=== PATIENT | female | born 1955 | race Caucasian/White ===

== ENCOUNTER 2016-07-30 11:09 | Inpatient (IN) ==
--- NOTE | 2016-07-27 21:08 | Discharge Summary ---
<Merissa Mcdaniel - Last Filed: 07/30/16 08:48> - Discharge Diagnosis (1) Arthritis of knee, left Priority: Primary Status: Acute (2) JAC (obstructive sleep apnea) Priority: Secondary Status: Chronic (3) HTN (hypertension) Priority: Secondary Status: Chronic Qualifiers: Hypertension type: essential hypertension Qualified Code(s): I10 - Essential (primary) hypertension (4) Hyperlipidemia Priority: Secondary Status: Chronic Qualifiers: Hyperlipidemia type: unspecified Qualified Code(s): E78.5 - Hyperlipidemia , unspecified (5) Obesity (BMI 35.0-39.9 without comorbidity) Priority: Secondary Status: Chronic - Discharge Medications Home Medications: Carvedilol 12.5 mg PO BID 01/10/16 [History] Meloxicam 15 mg PO DAILY 01/10/16 [History] Pantoprazole Sodium [Protonix] 40 mg PO DAILY 01/10/16 [History] Soy Isofla/Blk Cohosh/Mag Bark [Estroven 155 mg Capsule] 155 mg PO DAILY [History] Vitamin E Acid Succinate [Vitamin E] 400 units PO DAILY 01/10/16 [History] OxyCODONE Immed Rel [Roxicodone 5 MG] 5 - 10 mg PO Q6HR PRN #30 tablet 07/29/16 [Rx] Aspirin Enteric Coated [Aspirin EC] 81 mg PO DAILY 07/30/16 [History] Aspirin Enteric Coated [Aspirin EC] 325 mg PO DAILY #21 tablet. 07/30/16 [Rx] Cyanocobalamin (Vitamin B-12) [Vitamin B-12] 1,000 mcg SL DAILY 07/30/16 [ History] Allergies/Adverse Reactions: Allergies Enoxaparin [From Lovenox] Allergy (Verified 07/30/16 13:55) Unresponsive Iodinated Contrast Media - Oral and [Iodinated Contrast Media - IV Dye] Allergy (Verified 07/30/16 13:55) Blister lanolin Allergy (Verified 07/30/16 13:55) Rash latex Allergy (Verified 07/30/16 13:55) Rash iodine Adverse Reaction (Verified 07/30/16 13:55) Blister Primary care physician: PCP NO - Patient Status Disposition: Home, Self-Care Condition: Good - Discharge Instructions Follow Up With: NO,PCP [Primary Care Provider] - - Hospital Course Hospital course: Ms. Rowell is a 60 year old female - Time Spent with Patient Total time spent providing and/or coordinating discharge services: <Cristóbal Franklin - Last Filed: 07/31/16 06:35> Date of Encounter: 07/31/16 Time of Encounter: 06:33 - Discharge Diagnosis (1) HTN (hypertension) Priority: Secondary Status: Chronic Qualifiers: Hypertension type: unspecified secondary hypertension Qualified Code(s): I15.9 - Secondary hypertension, unspecified; I15 - Secondary hypertension (2) GERD (gastroesophageal reflux disease) Priority: Secondary Status: Chronic Qualifiers: Esophagitis presence: without esophagitis Qualified Code(s): K21.9 - Gastro -esophageal reflux disease without esophagitis (3) Hyperlipidemia Priority: Secondary Status: Chronic Qualifiers: Hyperlipidemia type: unspecified Qualified Code(s): E78.5 - Hyperlipidemia , unspecified (4) Obesity (BMI 35.0-39.9 without comorbidity) Priority: Secondary Status: Chronic (5) Arrhythmia Priority: Secondary Status: Acute Qualifiers: Arrhythmia type: unspecified cardiac arrhythmia Qualified Code(s): I49.9 - Cardiac arrhythmia, unspecified (6) Obstructive sleep apnea Priority: Secondary Status: Chronic (7) Berylliosis Priority: Secondary Status: Chronic (8) Arthritis of knee, left Priority: Primary Status: Acute (9) Acute blood loss anemia Priority: Primary Status: Acute Primary care physician: PCP NO - Patient Status Functional capacity at discharge: uses cane/walker Overall status at discharge: patient is progressing back to baseline - Hospital Course Hospital course: Ms. Rowell is a 61 year old female uneventful postop course antibiotics and PT DC ASA dvt prophylaxis. HB 10.2 - Time Spent with Patient Total time spent providing and/or coordinating discharge services:
[2016-07-30] MEDS ORDERED: CeFAZolin Pre 2,000 MG/100 ML 2,000 MG/100 ML BAG IVPB ONE (12:20)
--- NOTE | 2016-07-30 12:54 | History & Physical Report ---
Date of Encounter: 07/30/16 Time of Encounter: 12:54 24 Hour HP Update - Instructions Instructions: If the History and Physical is less than 30 days old and was completed prior to A.M. admission and or procedure and has NOT been updated on calendar day of procedure please complete this update prior to performing procedure. - Update Patient reports changes in Medical Condition: No Changes in assessment/condition: No Changes in Medication: No Preop tests/diagnostics Reviewed: Yes Surgery Remains Indicated: Yes Consent for Planned Operative Procedure(s) Verified: Yes - Pre-Operative Checklist Preoperative Checklist Indicated: No Prophylactic Antibiotic Ordered: Yes Is VTE Prophylaxis Indicated?: Yes
[2016-07-30] MEDS: Ringers Solution, Lactated 500 ML IVC SCH ×3 (13:40→15:18)
--- NOTE | 2016-07-30 13:41 | Anesthesia Evaluation PreOp ---
Date of Encounter: 07/30/16 Time of Encounter: 13:40 - Past History Planned Operation: Left TKA Cardiac History: HTN, Hyperlipidemia, Arrhythmia Pulmonary History: Denies Any Significant HX TRUCK TECHNICIAN History: Denies Any Significant HX Other Medical History: GERD, Other (Obese) Anesthesia History: No Prior Anesthetic Complications : No Alcohol Use: none, rarely Drug use: none Medications and Allergies Carvedilol 12.5 mg PO BID 01/10/16 [History] Meloxicam 15 mg PO DAILY 01/10/16 [History] Pantoprazole Sodium [Protonix] 40 mg PO DAILY 01/10/16 [History] Soy Isofla/Blk Cohosh/Mag Bark [Estroven 155 mg Capsule] 155 mg PO DAILY [History] Vitamin E Acid Succinate [Vitamin E] 400 units PO DAILY 01/10/16 [History] OxyCODONE Immed Rel [Roxicodone 5 MG] 5 - 10 mg PO Q6HR PRN #30 tablet 07/29/16 [Rx] Aspirin Enteric Coated [Aspirin EC] 325 mg PO DAILY #21 tablet. 07/30/16 [Rx] Allergies Enoxaparin [From Lovenox] Allergy (Verified 04/21/16 19:39) Unresponsive Iodinated Contrast Media - Oral and [Iodinated Contrast Media - IV Dye] Allergy (Verified 01/10/16 08:19) Cramping of the Muscles lanolin Allergy (Verified 04/21/16 15:23) Rash latex Allergy (Verified 01/10/16 08:19) Rash iodine Adverse Reaction (Verified 01/10/16 09:38) Blister - Meds/Allergy Pre-op Review Medications Reviewed: Yes Allergies Reviewed: Yes Beta Blockers on Current Med List: Yes (Coreg at 1340 today) Anesthesia Results - Labs Laboratory Tests 07/23/16 07/23/16 09:38 09:38 Hgb 11.4 L Hct 34.8 L Plt Count 268 Sodium 137 Potassium 4.3 BUN 9 Creatinine 0.86 - Imaging EKG: report reviewed (SR) Anesthesia Exam O2 Sat Height 1.65 m Height 1.65 m Weight 99.337 kg Weight 99.337 kg O2 Sat by Pulse Oximetry 97 O2 Sat by Pulse Oximetry 97 Vital Signs Temp Pulse Resp BP Pulse Ox 98.6 F 84 16 134/84 97 07/30/16 12:19 07/30/16 12:19 07/30/16 12:19 07/30/16 12:19 07/30/16 12:19 Height: 5'5 Weight: 219 lbs NPO (# of Hours): MN Pain Scale: 1 - HEENT Pupil (Motor): Pupils equal, EOMI Mallampati: II Teeth: Normal Oral Opening: Greater than 3 - TRUCK TECHNICIAN LOC: Oriented TRUCK TECHNICIAN Motor: Normal RUE, Normal LUE, Normal RLE, Normal LLE, Normal Face TRUCK TECHNICIAN Sensory: Normal: RUE, LUE, RLE, LLE, Face - Cardiac Rhythm: Regular Murmur: None JVD: No Carotid Bruit: No - Pulmonary Breath Sounds: bilateral Clear Respiratory Effort: Symmetrical Anesthesia Assess/Plan ASA Score: 2 Modified Bayview Scale for Level of Consciousness: Cooperative, oriented, and tranquil Anesthetic Plan: General, Regional Monitoring Plan: Standard Monitors Recovery Plan: PACU (Discussed GA and RA, agrees to proceed)
[2016-07-30] MEDS ORDERED: *HR* Midazolam HCl 2 MG/2 ML VIAL ONE ×3 (13:46→14:10)
[2016-07-30] MEDS ORDERED: Dexamethasone 4 MG/ML VIAL ONE ×2 (13:47→14:10)
[2016-07-30] MEDS ORDERED: *HR* Propofol 200 MG/20 ML VIAL IVP ONE ×2 (13:47→14:10)
[2016-07-30] MEDS ORDERED: Lidocaine -MPF 2% 2 ML VIAL ONE ×2 (13:47→14:10)
[2016-07-30] MEDS ORDERED: *HR* FentaNYL (PF) 100 MCG/2 ML VIAL ONE ×2 (13:47→14:10)
[2016-07-30] MEDS ORDERED: Ondansetron 4 MG/2 ML VIAL ONE ×2 (13:47→14:10)
[2016-07-30] MEDS ORDERED: Tetracaine/PF 20 MG/2 ML AMPUL SPINA ONE (13:48)
[2016-07-30] MEDS ORDERED: Bupivacaine/Clonidine Syringe 1 EACH SYRINGE ONE (13:48)
[2016-07-30] MEDS ORDERED: ROPIVACAINE HCL/PF 0.5% 30 ML VIAL ONE (13:48)
[2016-07-30] MEDS ORDERED: *HR* Rocuronium Bromide 50 MG/5 ML VIAL ONE (14:05)
[2016-07-30] MEDS ORDERED: Lidocaine -MPF 4% 5 ML AMPUL ONE (14:05)
[2016-07-30] MEDS ORDERED: *HR* Succinylcholine 200 MG/10 ML VIAL IVP ONE (14:05)
[2016-07-30] MEDS ORDERED: Ketorolac 30 MG/ML VIAL ONE ×2 (14:11→15:31)
--- NOTE | 2016-07-30 15:18 | Orthopedic Operative Note ---
Date of procedure: 07/30/16 Pre-op diagnosis: Knee arthritis left Post-op diagnosis: same Procedure: Procedure: Left Total knee replacement Estimated blood loss: 200 cc Hardware: Arthrex Femur: 6 Tibia: 5 PS insert: 12 Patella: 37 Exam Under anesthesia: Full flexion and full extension Procedural Notes: Grade 4 arthritic changes medial compartment patellofemoral joint grade 3 arthritic changes lateral compartment Operative procedure: The patient was brought to the operating room and placed on the operating room table. After general anesthesia was administered the operative knee was examined. Findings were noted in the exam under anesthesia. The operative extremity was prepped and draped in sterile surgical fashion. The patient received IV antibiotics prior to skin incision. A standard midline incision was made centered over the patella. The incision was made through the skin and subcutaneous tissue. A medial parapatellar tendon approach was performed. Care was taken to preserve tissue along the medial aspect of the patella. And to protect the patella tendon. The deep MCL was released off the medial tibia. The infra patella fat pad was excised. Knee was brought into flexion. Patient noted to have grade 4 arthritic changes medial compartment and patellofemoral joint grade 3 arthritic changes lateral compartment. The entry hole was made for the intramedullary femoral guide. The guide was seated in 6 degrees of valgus. Anterior cut was made followed by the distal cut. The ACL the PCL the medial and the lateral menisci were excised. The tibia was subluxed forward. The entry hole was made for the intramedullary tibial guide. Guide was seated to resect 2 mm off the more abnormal side. The knee was brought into flexion the distal femur was sized to a 6. The femoral guide was seated, the anterior cut was made followed by the posterior condylar cut, followed by the chamfer cuts. The finishing guide was seated the box cut was made and the lug holes were drilled. The tibia was sized to a 5, the tibial tray was seated and prepared with the large drill followed by the fin cutter. Trial reduction revealed full extension no varus valgus instability with the appropriate 12 PS Bernice. The patella was everted and cut was made at the level of the insertion of the quadriceps and patella tendon. The patella was sized 37 the guide was seated and the lug holes are drilled. Trial reduction revealed excellent patella tracking. All trial components were removed all bony surfaces were irrigated. The tibia was cemented first followed by the femur. The 12 PS Bernice was seated and the knee was brought into full extension. The patella was cemented and held in place with the patellar holding clamp. After the cement had hardened, the knee sat for 2 minutes with a Betadine saline solution. The knee was then irrigated out with 2 L of pulse irrigation. The extensor mechanism was closed with #2 FiberWire suture and #2 PDS suture. The subcutaneous tissue was then irrigated and closed deep with #1 PDS suture superficially with 0 PDS suture and skin was closed with skin diamond. The patient was then placed in a sterile dressing and a postoperative brace extubated and transferred to recovery room in stable condition. Anesthesia: GETBrian Surgeon: Cristóbal Franklin Condition: stable Disposition: PACU
[2016-07-30 16:12] LABS: Hematocrit 29.9 % (35.3-44.9); Hemoglobin 10.2 g/dL (11.5-15.4)
[2016-07-30] MEDS: *HR* HYDROmorphone (PF) 1 MG/ML SYRINGE IVP PRN ×4 (16:14→18:01)
--- NOTE | 2016-07-30 16:53 | Anesthesia Evaluation Post Op ---
Date of Encounter: 07/30/16 Time of Encounter: 16:52 - Vital Signs Vital Signs: VSS - Lungs Lungs: Clear Ascult./Percussion - Airway Airway: Non-obstructed - Cardiovascular Regular Rate, Baseline Rhythm - Mental Status Mental Status: Alert & Oriented, Answers Appropriately - Pain Pain Scale: 0 Pain Scale used: Numeric (1 - 10) - Nausea Vomiting Nausea Vomiting: Not Present - Hydration Hydration: Ice chips - Discharge PostOp Status: Transfer Patient to floor
[2016-07-30] MEDS ORDERED: Ondansetron 4 MG/2 ML VIAL IVP PRN (17:26)
[2016-07-30] MEDS ORDERED: MOM Conc 10 ML UD.LIQ PO PRN (17:26)
[2016-07-30] MEDS ORDERED: Acetaminophen 325 MG TABLET PO PRN (17:26)
[2016-07-30] MEDS ORDERED: Sennosides 8.6 MG TABLET PO PRN (17:26)
[2016-07-30] MEDS ORDERED: Temazepam 15 MG CAPSULE PO PRN (17:26)
[2016-07-30] MEDS ORDERED: Ringers Solution, Lactated 1,000 ML IVC SCH (17:26)
[2016-07-30] MEDS ORDERED: *HR* Enoxaparin 30 MG/0.3 ML SYRINGE SQ SCH (18:00)
[2016-07-30] MEDS: *HR* OxyCODONE Immed Rel 5 MG TABLET PO PRN (20:58)
[2016-07-30] MEDS: ceFAZolin 2,000 MG in D5% in Water 100 ML IVPB SCH (23:12)
[2016-07-31] MEDS: *HR* OxyCODONE Immed Rel 5 MG TABLET PO PRN ×4 (03:33→21:54)
[2016-07-31] MEDS: *HR* Rivaroxaban 10 MG TABLET PO SCH (06:32)
--- NOTE | 2016-07-31 06:36 | Orthopedics Progress Note ---
Date of Encounter: 07/31/16 Time of Encounter: 06:35 - Assessment and Plan (1) HTN (hypertension) Current Visit: No Status: Chronic Qualifiers: Hypertension type: unspecified secondary hypertension Qualified Code(s): I15.9 - Secondary hypertension, unspecified; I15 - Secondary hypertension (2) GERD (gastroesophageal reflux disease) Current Visit: No Status: Chronic Qualifiers: Esophagitis presence: without esophagitis Qualified Code(s): K21.9 - Gastro -esophageal reflux disease without esophagitis (3) Hyperlipidemia Current Visit: No Status: Chronic Qualifiers: Hyperlipidemia type: unspecified Qualified Code(s): E78.5 - Hyperlipidemia , unspecified (4) Obesity (BMI 35.0-39.9 without comorbidity) Current Visit: No Status: Chronic (5) Arrhythmia Current Visit: No Status: Acute Qualifiers: Arrhythmia type: unspecified cardiac arrhythmia Qualified Code(s): I49.9 - Cardiac arrhythmia, unspecified (6) Obstructive sleep apnea Current Visit: No Status: Chronic (7) Berylliosis Current Visit: No Status: Chronic (8) Arthritis of knee, left Current Visit: Yes Status: Acute (9) Acute blood loss anemia Current Visit: No Status: Acute Subjective Interval history: pt doing well no complaints afvss operative extremity NVI dressing c/d/i calves nt continue postop care Hb 10.2 plan dc today Objective Vital signs: Vital Signs Temp Pulse Resp BP Pulse Ox 07/31/16 06:21 98.4 F 78 18 119/72 94 L 07/31/16 03:35 98.9 F 108 18 123/76 94 L 07/30/16 23:44 98.1 F 105 15 108/70 94 L 07/30/16 20:20 97.3 F L 52 17 99/66 97 07/30/16 19:14 97.8 F 88 15 111/72 98 07/30/16 18:16 97.6 F 65 15 118/67 100 07/30/16 17:45 97.6 F 61 15 111/63 100 07/30/16 17:15 97.6 F 63 16 115/63 100 07/30/16 16:57 77 16 123/82 100 07/30/16 16:47 97.0 F L 74 16 117/73 100 07/30/16 16:37 74 16 112/70 98 07/30/16 16:27 62 14 111/65 93 L 07/30/16 16:17 96.8 F L 60 16 113/69 98 07/30/16 16:07 64 16 110/65 100 07/30/16 15:57 60 14 108/63 100 07/30/16 15:47 97.0 F L 64 12 132/70 96 07/30/16 14:20 90 121/79 99 07/30/16 13:54 89 130/86 98 07/30/16 12:30 98.6 F 84 16 134/84 97 07/30/16 12:19 98.6 F 84 16 134/84 97 Intake and Output 07/30/16 07/30/16 07/31/16 15:59 23:59 07:59 Intake Total 1100 / 1100 100 / 100 Output Total 200 / 200 Balance 900 / 900 100 / 100 Intake: IV Fluids 1100 / 1100 100 / 100 Lactated Ringers 500 ML @ 1000 / 1000 75 mls/hr IVC .Q6H40M AYAD Rx#:[id number] Ancef 2,000 MG In 100 / 100 Dextrose 5% 100 ML @ 200 mls/hr IVPB Q8H AYAD Rx#: [id number] Ancef Premix 2,000 MG/100 100 / 100 ML 2,000 mg In 100 ml @ 200 mls/hr IVPB PREOP ONE Rx#:[id number] Output: Estimated Blood Loss 200 / 200 Other: # Voids 1 Weight 99.337 kg - Labs CBC & BMP: 07/30/16 16:04 Labs: Abnormal lab results Hgb 10.2 g/dL (11.5-15.4) L 07/30/16 16:04 Hct 29.9 % (35.3-44.9) L 07/30/16 16:04 - VTE Documentation of Mechanical Device: Venous foot pump, device Consult Discharge Plan - Plan Referrals: NO,PCP [Primary Care Provider] -
[2016-07-31 06:48] LABS: Hematocrit 28.5 % (35.3-44.9); Hemoglobin 9.7 g/dL (11.5-15.4)
[2016-07-31 06:59] LABS: BUN/Creatinine Ratio 15 (6-26); Blood Urea Nitrogen 12 mg/dL (7-20); Calcium 8.4 mg/dL (8.6-10.8); Carbon Dioxide 22 mEq/L (19-29); Chloride 103 mEq/L (98-109); Glucose 118 mg/dL (70-99); Osmolality,Calculated 285 (280-300); Potassium 4.6 mEq/L (3.5-4.5); Sodium 137 mEq/L (136-145); eGFR For African Americans > 60 (> 60); eGFR For Non-African Americans > 60 (> 60)
[2016-07-31] MEDS: ceFAZolin 2,000 MG in D5% in Water 100 ML IVPB SCH (07:44)
[2016-07-31] MEDS: *HR* HYDROmorphone (PF) 1 MG/ML SYRINGE IVP PRN ×3 (11:15→18:54)
[2016-07-31] MEDS ORDERED: *HR* Rivaroxaban 10 MG TABLET PO SCH (13:47)
[2016-07-31] MEDS: Gabapentin 300 MG CAPSULE PO SCH ×2 (13:49→21:07)
--- NOTE | 2016-07-31 17:55 | Venous Imaging Report ---
LE Venous Duplex Patient Name:Brenda Rowell Order Number:[id number] Procedure Date:07/31/2016 Date:1955ge:61 yrs Gender:Female Location:[facility] Room #: [id number] Marine Equipment Preservation Inspector:Erica Ramirez Referring MD:Cristóbal Franklin MD prison librarian:None Reading MD:Abilio Brown MD Primary Indications:calf pain Secondary Indications: Risk Factors Yes/No Anticoagulants Yes Knee surgery s/p 1 day Yes Impressions: Normal left lower extremity deep and superficial venous exam. Normal contralateral common femoral vein. Recommendations: After imaging the patient returned to their room. Findings Venous Duplex Results: Right: Venous imaging of the lower extremity reveals full patency and normal vessel compressibility of the right common femoral. Doppler signals in the evaluated veins were normal. Left: Venous imaging of the lower extremity reveals full patency and normal vessel compressibility of the left distal iliac, left common femoral, left superficial femoral, left popliteal, left posterior tibial, left peroneal, left great saphenous and left lesser saphenous. Doppler signals in the evaluated veins were normal. Lower Extremity Venous Duplex Side Vein Compress Spontaneous Flow Augment Diameter (cm) Depth (cm) Left Distal Iliac Normal Yes Phasic Yes Left Common Femoral Normal Yes Phasic Yes Left Superficial Femoral Normal Yes Phasic Yes Left Popliteal Normal Yes Phasic Yes Left Posterior Tibial Normal Yes Phasic Yes Left Peroneal Normal Yes Phasic Yes Left Great Saphenous Normal Yes Phasic Yes Left Lesser Saphenous Normal Yes Phasic Yes Right Common Femoral Normal Yes Phasic Yes Updated by Abilio Brown MD on 07/31/2016 5:48:36 PM electronically signed on 07/31/2016 5:49:28 PM with status of Final
[2016-08-01] MEDS: Naloxone 0.4 MG/ML INJ IVP PRN ×3 (06:23→07:29)
--- NOTE | 2016-08-01 06:44 | Orthopedics Progress Note ---
Date of Encounter: 08/01/16 Time of Encounter: 06:41 - Assessment and Plan (1) HTN (hypertension) Current Visit: No Status: Chronic Qualifiers: Hypertension type: unspecified secondary hypertension Qualified Code(s): I15.9 - Secondary hypertension, unspecified; I15 - Secondary hypertension (2) GERD (gastroesophageal reflux disease) Current Visit: No Status: Chronic Qualifiers: Esophagitis presence: without esophagitis Qualified Code(s): K21.9 - Gastro -esophageal reflux disease without esophagitis (3) Hyperlipidemia Current Visit: No Status: Chronic Qualifiers: Hyperlipidemia type: unspecified Qualified Code(s): E78.5 - Hyperlipidemia , unspecified (4) Obesity (BMI 35.0-39.9 without comorbidity) Current Visit: No Status: Chronic (5) Arrhythmia Current Visit: No Status: Acute Qualifiers: Arrhythmia type: unspecified cardiac arrhythmia Qualified Code(s): I49.9 - Cardiac arrhythmia, unspecified (6) Obstructive sleep apnea Current Visit: No Status: Chronic (7) Berylliosis Current Visit: No Status: Chronic (8) Arthritis of knee, left Current Visit: Yes Status: Acute (9) Acute blood loss anemia Current Visit: No Status: Acute Subjective Interval history: Patient seen this AM, difficult to arrouse, received 10 mg of roxicodone last night. Patient did not respond to 2 doses of Narcan. Patient seen by the hospitalist. Recommendation for ABG and possible brain scan Temperature 103. Vital signs stable. Laboratory reviewed slight anemia good kidney function from yesterday. Continue to monitor Objective Vital signs: Vital Signs Temp Pulse Resp BP Pulse Ox 08/01/16 00:00 98.3 F 68 17 126/78 95 07/31/16 20:00 100.4 F H 114 17 138/74 95 07/31/16 14:40 98.2 F 97 18 116/74 93 L 07/31/16 11:10 98.4 F 93 20 127/81 100 Intake and Output 07/31/16 07/31/16 08/01/16 15:59 23:59 07:59 Intake Total 360 / 360 350 / 350 200 / 200 Output Total 400 / 400 300 / 300 Balance 360 / 360 -50 / -50 -100 / -100 Intake: Oral 360 / 360 350 / 350 200 / 200 Output: Urine 400 / 400 300 / 300 Other: Meal Lunch Percent of Meal Consumed 95% # Voids 4 - Labs CBC & BMP: 07/31/16 05:50 07/31/16 05:50 Labs: Abnormal lab results Hgb 9.7 g/dL (11.5-15.4) L 07/31/16 05:50 Hct 28.5 % (35.3-44.9) L 07/31/16 05:50 Potassium 4.6 mEq/L (3.5-4.5) H 07/31/16 05:50 Glucose 118 mg/dL (70-99) H 07/31/16 05:50 Calcium 8.4 mg/dL (8.6-10.8) L 07/31/16 05:50 - VTE Documentation of Mechanical Device: Venous foot pump, device Consult Discharge Plan - Plan Referrals: Cristóbal Franklin MD [Partnered Physician] - 08/28/16 9:35 am Merissa Mcdaniel, PAC [Physician Regulatory Compliance Engineer] - 08/09/16 9:45 am YOLIE,PCP [Primary Care Provider] -
[2016-08-01 06:53] LABS: Hematocrit 25.5 % (35.3-44.9); Hemoglobin 8.3 g/dL (11.5-15.4)
[2016-08-01 06:58] LABS: ABG Base Excess 4.8 mEq/L (-2.0 to 3.0); ABG HCO3 29.2 mEQ/L (21-27); ABG Oxygen Saturation 100 % (95-98); ABG PCO2 42 mmHg (35-45); ABG PH 7.45 pH Units (7.32-7.45); ABG PO2 242 mmHg (85-104); ABG TCO2 30.5 mEq/L (20-26)
[2016-08-01 06:59] LABS: Blood Gas FiO2 100 %
[2016-08-01] MEDS: *HR* Rivaroxaban 10 MG TABLET PO SCH (07:09)
[2016-08-01 07:14] LABS: Potassium 4.8 mEq/L (3.5-4.5)
[2016-08-01] MEDS ORDERED: Acetaminophen IV 1,000 MG/100 ML INFUS..BTL IVPB STA (07:15)
[2016-08-01 07:28] LABS: Calcium 8.5 mg/dL (8.6-10.8)
--- NOTE | 2016-08-01 07:35 | Internal Medicine Consult Note ---
Date of Encounter: 08/01/16 Time of Encounter: 07:29 - Assessment and Plan (1) Sepsis Current Visit: Yes Status: Acute Assessment and plan: Unclear etiology at this time. CXR with increased interstitial makings at bilateral hilar regions. UA/micro negative for evidence of infection. No nuchal rigidity, patient denying headache or neck pain which makes [employer] infection unlikely. Timing makes surgical site infection unlikely (less than 48 hours since TKA). Influenza swab negative but this does not rule out influenza. Given temp of 103 plus evidence of end organ dysfunction (ray and transaminase elevation), will treat for sepsis with antibiotics and fluid resuscitation. - Will treat with vanc/zosyn to cover for hospital acquired infections, could have early pneumonia s/p intubation for surgery - Blood cultures obtained and pending - IV fluid resuscitation Qualifiers: Sepsis type: sepsis due to unspecified organism Qualified Code(s): A41.9 - Sepsis, unspecified organism (2) Transaminitis Current Visit: Yes Status: Acute Assessment and plan: Likely secondary to sepsis. S/p cholecystectomy and patient denies abdominal pain. Abdominal exam benign. Lipase pending. - Trend transaminases, if increase tomorrow consider RUQ US (3) RAY (acute kidney injury) Current Visit: Yes Status: Acute Assessment and plan: In setting of sepsis. FENa = 0, supporting prerenal etiology as driving the RAY - IV fluid resuscitation (4) Somnolence Current Visit: Yes Status: Acute Assessment and plan: Multifactorial. Overmedication in the setting of sepsis. Recently started on gabapentin (now with RAY, gabapentin is renally cleared). Also on narcotics with improvement of alertness after narcan administration. Patient more alert on recheck several hours after initial evaluation, and mental status continued to improve throughout the day. CT head negative for any acute issues. - Discontinue gabapentin - Limit narcotics - Treat for sepsis Internal Medicine - CN: HPI - Data of Consult Patient: new to practice Requesting Physician: Cristóbal rFanklin MD - Consult Narrative Reason for consult: Somnolence, fever History of present illness: Ms. Rowell is a 61 year old female with history of GERD, HTN, JAC who underwent left TKA on 07/30/[address] Franklin, found to be very somnolent this morning with elevated temperature of 103.2. Patient had received roxycodone for increasing pain of the left knee and she did respond to 3 doses of narcan, and is now able to wake up and give one word answers to occasional questions with significant verbal stimulation. She denies any pain currently. She had an ABG which showed normal pH and CO2, elevated O2 (on nonrebreather at time of ABG) and normal HCO3-. Nursing staff states that she had low grade temperature in the night of 100.4 but this resolved with incentive spirometer use. Nursing states that she has not had any vomiting or diarrhea, no cough, and has not been complaining of abdominal pain or headache. She was started on gabapentin yesterday. Because of increasing pain in her left leg she did have duplex ultrasound which was negative for DVT. I have spoken with patient's who states that she only complained about her left knee and calf hurting her yesterday, and she had no other complaints. He denies any recent ill contacts at home. Past Med Surg Social Fam HX - Past Medical History Medical history: arthritis, GERD, hypertension, other (JAC) Psychiatric history: no psych history - Past Surgical History Surgical History: appendectomy, , cholecystectomy, hysterectomy, knee replacement, orthopedic, other, J CARLOS/BSO, other - Social History Smoking Status: Never smoker Smokeless Tobacco Status: No Alcohol use: rarely Drug use: none - Family History Mother Living Status: Hx Family Cardiac Disorders: Yes (HTN) Hx Family Musculoskeletal Disorders: Yes (bone cancer) ROS unobtainable: due to mental status Internal Medicine - CN: Meds Carvedilol 12.5 mg PO BID 01/10/16 [History] Meloxicam 15 mg PO DAILY 01/10/16 [History] Pantoprazole Sodium [Protonix] 40 mg PO DAILY 01/10/16 [History] Soy Isofla/Blk Cohosh/Mag Bark [Estroven 155 mg Capsule] 155 mg PO DAILY [History] Vitamin E Acid Succinate [Vitamin E] 400 units PO DAILY 01/10/16 [History] OxyCODONE Immed Rel [Roxicodone 5 MG] 5 - 10 mg PO Q6HR PRN #30 tablet 07/29/16 [Rx] Aspirin Enteric Coated [Aspirin EC] 81 mg PO DAILY 07/30/16 [History] Aspirin Enteric Coated [Aspirin EC] 325 mg PO DAILY #21 tablet 07/30/16 [Rx] Cyanocobalamin (Vitamin B-12) [Vitamin B-12] 1,000 mcg SL DAILY 07/30/16 [ History] Allergies Enoxaparin [From Lovenox] Allergy (Verified 07/30/16 13:55) Unresponsive Iodinated Contrast Media - Oral and [Iodinated Contrast Media - IV Dye] Allergy (Verified 07/30/16 13:55) Blister lanolin Allergy (Verified 07/30/16 13:55) Rash latex Allergy (Verified 07/30/16 13:55) Rash iodine Adverse Reaction (Verified 07/30/16 13:55) Blister Internal Medicine - CN: Exam - Constitutional Vitals: Temp Pulse Resp BP Pulse Ox 102.9 F H 114 18 118/67 90 L 08/01/16 07:28 08/01/16 07:28 08/01/16 07:28 08/01/16 07:28 08/01/16 07:28 Exam: Sleepy but will wake with verbal/tactile stimulus and give one word answers to questions. - Head Head exam: Present: atraumatic - Eye Eye exam: Present: EOMI Additional comments: Pupils 2mm bilaterally - ENT ENT exam: Present: mucous membranes moist - Neck Neck exam general surgery: Present: supple - Respiratory Additional comments: Patient will not cooperate with exam - Cardiovascular Cardiovascular exam IM: Present: RRR. Absent: diastolic murmur, gallop, rubs, systolic murmur - GI/Abdominal GI/Abdominal exam IM: Present: hypoactive bowel sounds, soft. Absent: distended , tenderness - Extremities Exam Additional comments: Left leg in brace, right leg without edema or erythema - Neurological Exam Neurological exam: Present: no focal deficits Additional comments: Moves all four extremities, unable to follow complex commands Internal Medicine - CN: Reslt - Labs CBC & Chem 7: 08/01/16 18:43 08/01/16 07:44 Labs: Short CBC 08/01/16 Range/Units 06:07 Hgb 8.3 L (11.5-15.4) g/dL Hct 25.5 L (35.3-44.9) % BMP 08/01/16 06:07 Sodium 130 L D Potassium 4.8 H Chloride 96 L Carbon Dioxide 27 BUN 15 Creatinine 1.33 H D Glucose 130 H - ABG Interpretation ABG results: ABG ABG pH 7.45 pH Units (7.32-7.45) 08/01/16 06:50 ABG pCO2 42 mmHg (35-45) 08/01/16 06:50 ABG pO2 242 mmHg (85-104) H 08/01/16 06:50 ABG O2 Saturation 100 % (95-98) H 08/01/16 06:50 Consult Discharge Plan - Plan Referrals: Cristóbal Franklin MD [Partnered Physician] - 08/28/16 9:35 am Merissa Mcdaniel PAC [Physician Doubling Machine Operator] - 08/09/16 9:45 am YOLIE,PCP [Primary Care Provider] -
[2016-08-01 08:02] LABS: INR 1.5; Prothrombin Time 15.8 Seconds (9.4-12.1)
[2016-08-01 08:07] LABS: Albumin 2.9 g/dL (3.5-5.0); Albumin/Globulin Ratio 0.9 (1.1-2.2); Bilirubin,Total 0.6 mg/dL (0.2-1.2); Calcium 8.1 mg/dL (8.6-10.8); Globulin 3.3 g/dL (2.4-3.5); Potassium 4.4 mEq/L (3.5-4.5); Total Protein 6.2 g/dL (6.0-8.3)
[2016-08-01 08:32] LABS: Bilirubin,Urine Negative (Negative); Blood,Urine Negative (Negative); Clarity,Urine Cloudy (Clear); Color,Urine Yellow (Yellow); Glucose,Urine (UA) Normal (Normal); Ketones,Urine Negative (Negative); Leukocyte Esterase,Urine Negative (Negative); Nitrite,Urine Negative (Negative); PH,Urine 5.5 pH Units (5.0-8.0); Protein,Urine Trace mg/dL (Neg-Trace); Specific Gravity,Urine 1.021 (1.010-1.025); Urobilinogen,Urine Normal (Normal)
[2016-08-01 08:34] LABS: Bacteria,Urine None Seen per hpf (None-Few); RBC,Urine 0-3 per hpf (0-3); Squamous Epithelial Cell,Urine Many per lpf (None-Few); WBC,Urine 0-3 per hpf (0-3)
[2016-08-01] MEDS: 0.9 % Sodium Chloride 1,000 ML IVC SCH ×2 (08:44→09:51)
[2016-08-01 08:52] LABS: Hyaline Casts,Urine Moderate per lpf (None-Few)
[2016-08-01 09:22] LABS: Creatinine,Urine 226 mg/dL
[2016-08-01 10:19] LABS: Sodium, Urine < 20.0 mEq/L
[2016-08-01] MEDS: Piperacillin/Tazobactam 3.375 GM in D5% in Water (Mini-Bag+) 100 ML IVPB SCH ×2 (10:23→17:01)
[2016-08-01] MEDS: Vancomycin 1,500 MG in D5% in Water 250 ML IVPB SCH ×2 (10:23→21:47)
[2016-08-01 12:09] LABS: Basophils % 0.3 %; Eosinophils % 0.1 %; Hematocrit 21.9 % (35.3-44.9); Hemoglobin 7.3 g/dL (11.5-15.4); Immature Granulocytes % 0.5 % (0-4); Immature Platelets 2.2 % (1.1-6.1); Lymphocytes # 0.9 K/mcL (0.6-4.6); Lymphocytes % 12.4 %; Mean Corpuscular HGB Conc 33.3 g/dL (31.6-35.5); Mean Corpuscular Hemoglobin 28.9 pg (28.0-33.3); Mean Corpuscular Volume 86.6 fL (83.0-100.0); Mean Platelet Volume 9.5 fL (9.4-12.4); Monocytes # 0.6 K/mcL (0.0-1.3); Monocytes % 7.2 %; Platelet Count 227 K/mcL (140-400); Red Blood Count 2.53 M/mcL (3.82-4.97); Red Cell Distribution Width 13.7 % (11.5-14.5); Segmented Neutrophils % 79.5 %
[2016-08-01 19:12] LABS: Hematocrit 20.6 % (35.3-44.9)
[2016-08-01] MEDS: Chloraseptic Spray 177 ML BOTTLE MM PRN (23:16)
[2016-08-02] MEDS: Piperacillin/Tazobactam 3.375 GM in D5% in Water (Mini-Bag+) 100 ML IVPB SCH (02:33)
[2016-08-02] MEDS: *HR* OxyCODONE Immed Rel 5 MG TABLET PO PRN ×2 (04:34→09:36)
[2016-08-02 05:29] LABS: Basophils % 0.5 %; Eosinophils # 0.1 K/mcL (0.0-0.6); Eosinophils % 1.6 %; Hematocrit 21.8 % (35.3-44.9); Hemoglobin 7.3 g/dL (11.5-15.4); Immature Granulocytes % 0.9 % (0-4); Lymphocytes # 0.9 K/mcL (0.6-4.6); Lymphocytes % 15.2 %; Mean Corpuscular HGB Conc 33.5 g/dL (31.6-35.5); Mean Corpuscular Hemoglobin 28.5 pg (28.0-33.3); Mean Corpuscular Volume 85.2 fL (83.0-100.0); Mean Platelet Volume 10.4 fL (9.4-12.4); Monocytes # 0.5 K/mcL (0.0-1.3); Monocytes % 9.4 %; Neutrophils # 4.1 K/mcL (1.6-8.9); Platelet Count 163 K/mcL (140-400); Red Blood Count 2.56 M/mcL (3.82-4.97); Red Cell Distribution Width 13.6 % (11.5-14.5); Segmented Neutrophils % 72.4 %
[2016-08-02 05:42] LABS: Alanine Aminotransferase 895 Units/L (0-55); Albumin 2.6 g/dL (3.5-5.0); Albumin/Globulin Ratio 0.8 (1.1-2.2); Alkaline Phosphatase 86 Units/L (38-126); Aspartate Amino Transferase 928 Units/L (5-34); BUN/Creatinine Ratio 11 (6-26); Bilirubin,Total 0.6 mg/dL (0.2-1.2); Blood Urea Nitrogen 8 mg/dL (7-20); Calcium 7.9 mg/dL (8.6-10.8); Carbon Dioxide 25 mEq/L (19-29); Chloride 106 mEq/L (98-109); Globulin 3.1 g/dL (2.4-3.5); Glucose 118 mg/dL (70-99); Osmolality,Calculated 289 (280-300); Potassium 4.1 mEq/L (3.5-4.5); Total Protein 5.7 g/dL (6.0-8.3); eGFR For African Americans > 60 (> 60); eGFR For Non-African Americans > 60 (> 60)
[2016-08-02 05:49] LABS: Sodium 140 mEq/L (136-145)
[2016-08-02] MEDS ORDERED: Furosemide 20 MG/2 ML VIAL IVP ONE ×2 (06:25→18:35)
--- NOTE | 2016-08-02 06:25 | Orthopedics Progress Note ---
Date of Encounter: 08/02/16 Time of Encounter: 06:24 - Assessment and Plan (1) HTN (hypertension) Current Visit: No Status: Chronic Qualifiers: Hypertension type: unspecified secondary hypertension Qualified Code(s): I15.9 - Secondary hypertension, unspecified; I15 - Secondary hypertension (2) GERD (gastroesophageal reflux disease) Current Visit: No Status: Chronic Qualifiers: Esophagitis presence: without esophagitis Qualified Code(s): K21.9 - Gastro -esophageal reflux disease without esophagitis (3) Hyperlipidemia Current Visit: No Status: Chronic Qualifiers: Hyperlipidemia type: unspecified Qualified Code(s): E78.5 - Hyperlipidemia , unspecified (4) Obesity (BMI 35.0-39.9 without comorbidity) Current Visit: No Status: Chronic (5) Arrhythmia Current Visit: No Status: Acute Qualifiers: Arrhythmia type: unspecified cardiac arrhythmia Qualified Code(s): I49.9 - Cardiac arrhythmia, unspecified (6) Obstructive sleep apnea Current Visit: No Status: Chronic (7) Berylliosis Current Visit: No Status: Chronic (8) Arthritis of knee, left Current Visit: Yes Status: Acute (9) Acute blood loss anemia Current Visit: No Status: Acute Subjective Interval history: Patient was seen this morning doing well without complaints. Afebrile vital signs stable. Operative extremity: Neurovascularly intact Dressing clean dry and intact Calves nontender Assessment and plan: Continue with postoperative care Hemoglobin 72 units packed red blood cells prior to discharge Objective Vital signs: Vital Signs Temp Pulse Resp BP Pulse Ox 08/02/16 03:50 98.5 F 101 16 154/94 97 08/01/16 23:59 98.4 F 91 15 143/73 99 08/01/16 17:49 98.4 F 99 18 117/74 94 L 08/01/16 11:16 100.0 F H 08/01/16 10:03 100.2 F H 98 22 117/67 95 08/01/16 08:44 101 F H 102 24 113/74 96 08/01/16 07:28 102.9 F H 114 18 118/67 90 L 08/01/16 07:03 103.2 F H 110 20 116/71 95 08/01/16 07:00 103.1 F H 118 16 128/67 92 L Intake and Output 08/01/16 08/01/16 08/02/16 15:59 23:59 07:59 Intake Total 1350 / 1350 200 / 200 250 / 250 Output Total 2049 1700 / 1700 2350 / 2350 Balance -700 / -700 -1500 / -1500 -2100 / -2100 Intake: IV Fluids 1350 / 1350 100 / 100 250 / 250 0.9 % Sodium Chloride 1, 1000 / 1000 000 ML @ 3750 mls/hr IVC .Q16M AYAD Rx#:[id number] Zosyn 3.375 GM In 100 / 100 100 / 100 Dextrose 5% (Minibag+) 100 ML 100 ML @ 25 mls/hr IVPB Q8H AYAD Rx#: [id number] Vancocin 1,500 MG In 250 / 250 250 / 250 Dextrose 5% 250 ML @ 167 mls/hr IVPB Q12H AYAD Rx#: [id number] Oral 100 / 100 Output: Catheter 2049 1700 / 1700 2350 / 2350 Other: Meal Dinner Percent of Meal Consumed 100% - Labs CBC & BMP: 08/02/16 05:08 08/02/16 05:08 Labs: Abnormal lab results RBC 2.56 M/mcL (3.82-4.97) L 08/02/16 05:08 Hgb 7.3 g/dL (11.5-15.4) L 08/02/16 05:08 Hct 21.8 % (35.3-44.9) L 08/02/16 05:08 PT 15.8 Seconds (9.4-12.1) H 08/01/16 07:44 ABG pO2 242 mmHg (85-104) H 08/01/16 06:50 ABG HCO3 29.2 mEQ/L (21-27) H 08/01/16 06:50 ABG Total CO2 30.5 mEq/L (20-26) H 08/01/16 06:50 ABG O2 Saturation 100 % (95-98) H 08/01/16 06:50 ABG Base Excess 4.8 mEq/L (-2.0 to 3.0) H 08/01/16 06:50 Glucose 118 mg/dL (70-99) H 08/02/16 05:08 Calcium 7.9 mg/dL (8.6-10.8) L 08/02/16 05:08 AST 928 Units/L (5-34) H 08/02/16 05:08 ALT 895 Units/L (0-55) H 08/02/16 05:08 Serum Total Protein 5.7 g/dL (6.0-8.3) L 08/02/16 05:08 Albumin 2.6 g/dL (3.5-5.0) L 08/02/16 05:08 Albumin/Globulin Ratio 0.8 (1.1-2.2) L 08/02/16 05:08 Urine Clarity Cloudy (Clear) A 08/01/16 08:08 Ur Squamous Epith Cells Many per lpf (None-Few) H 08/01/16 08:08 Hyaline Casts Moderate per lpf (None-Few) H 08/01/16 08:08 - VTE Documentation of Mechanical Device: Venous foot pump, device Consult Discharge Plan - Plan Referrals: Cristóbal Franklin MD [Partnered Physician] - 08/28/16 9:35 am Merissa Mcdaniel PAC [Physician Division Leader] - 08/09/16 9:45 am NO,PCP [Primary Care Provider] -
[2016-08-02] MEDS ORDERED: 0.9 % Sodium Chloride 250 ML IVC SCH (06:30)
[2016-08-02] MEDS: Chloraseptic Spray 177 ML BOTTLE MM PRN (08:27)
--- NOTE | 2016-08-02 09:45 | Internal Med Progress Note ---
Date of Encounter: 08/02/16 Time of Encounter: 09:30 - Assessment and plan (1) Fever Current Visit: Yes Status: Acute Assessment and plan: Temp of 103.9 at 7am on 08/01. Could be secondary to gabapentin vs infection. - CXR negative for infection. no cough, no respiratory symptoms. not requiring oxygen. - No nuchal rigidity, patient denying headache or neck pain which makes [employer] infection unlikely. - ALT and AST are trending up. normal bilirrubin and Alk phos. no abdominal pain , nausea, vomiting or diarrhea. She is eating well. Off gabapentin. Patient was started on IV Vancomycin and Zosyn, afebrile for 12 hours. Given no signs of infection, I will stop Iv Zosyn and continue IV vancomycin until final results of blood cultures. Continue IV fluids. serial monitor of LFTs. check us liver. Qualifiers: Fever type: unspecified Qualified Code(s): R50.9 - Fever, unspecified (2) Transaminitis Current Visit: Yes Status: Acute Assessment and plan: suspected acute hepatitis. could be secondary to ischemia from acute blood loss anemia. r/o viral hepatitis. AST 928. ALT 895. low albumin. high INR. normal bilirrubin and alk phos. check liver US, hepatitis profile, ferritin. close monitoring LFTs/INR. (3) Acute metabolic encephalopathy Current Visit: Yes Status: Resolved Assessment and plan: resolved. secondary to gabapentin and narcotics in the setting of fever and acute blood loss anemia. Pt underwent left TKA on 07/30/[address] Franklin, found to be very somnolent the morning of 08/01 with elevated temperature of 103.2. Patient had received roxycodone for increasing pain of the left knee and was started on gabapentin . She did respond to 3 doses of narcan, and is now able to wake up and give one word answers to occasional questions with significant verbal stimulation. She denies any pain currently. She had an ABG which showed normal pH and CO2, elevated O2 (on nonrebreather at time of ABG) and normal HCO3. CT head was unremarkable. (4) Postoperative anemia due to acute blood loss Current Visit: No Status: Acute Assessment and plan: chronic anemia, hgb in May 2016 was 11. Hgb on admission was 10.2 and dropped to 7 on 3/23. Transfuse 2 units PRBC. check ferritin on blood before transfusion. pt is hemodynamically stable. close monitoring. (5) Acute hyponatremia Current Visit: Yes Status: Acute Assessment and plan: resolved. hypovolemic hyponatremia. (6) RAY (acute kidney injury) Current Visit: Yes Status: Acute Assessment and plan: resolved. Pre-renal from infection/fever and poor oral intake. received IV fluids. (7) JAC (obstructive sleep apnea) Current Visit: Yes Status: Chronic (8) Obesity (BMI 35.0-39.9 without comorbidity) Current Visit: No Status: Chronic Assessment and plan: bmi 36.4.. outpatient weight loss program - Subjective Interval history: Patient denies any abdominal pain, nausea or vomiting. She reports severe allergic reactions to medications in the past (anaphylaxis to lovenox). no history of liver disease. fever resolved. Patient's only complain is left calf pain. - Constitutional Vitals: Temp Pulse Resp BP Pulse Ox 98.8 F 81 14 138/86 98 08/02/16 09:23 08/02/16 09:23 08/02/16 09:23 08/02/16 09:23 08/02/16 09:23 General appearance: Present: cooperative, A&O X 3, pleasant, no acute distress, answers questions appropriately - Eye Eye exam: Present: PERRL, sclera anicteric - Neck Neck exam general surgery: Present: supple, trachea midline. Absent: lymphadenopathy - Respiratory Respiratory exam: Absent: CTAB - Cardiovascular Cardiovascular exam: Present: RRR - GI/Abdominal GI/Abdominal exam: Present: normal bowel sounds, soft. Absent: distended, tenderness - Extremities Exam Additional comments: left leg: swelling up to knee. surgical wound dressing in place. - Back Exam Back exam: Absent: CVA tenderness (L), CVA tenderness (R) - Neurological Exam Neurological exam: Present: alert, oriented X3, no focal deficits, strengths equal and symetr throughout. Absent: facial droop, speech deficit - Skin Skin exam: Absent: rash Additional comments: left leg Internal Medicine: Result - Labs CBC & Chem 7: 08/02/16 05:08 08/02/16 05:08 Labs: Short CBC 08/01/16 08/01/16 08/02/16 Range/Units 12:01 18:43 05:08 WBC 7.6 5.7 (4.3-11.1) K/mcL Hgb 7.3 L 7.0 L 7.3 L (11.5-15.4) g/dL Hct 21.9 L 20.6 L 21.8 L (35.3-44.9) % Plt Count 227 163 (140-400) K/mcL Neutrophils # 6.0 4.1 (1.6-8.9) K/mcL BMP 08/02/16 05:08 Sodium 140 D Potassium 4.1 Chloride 106 Carbon Dioxide 25 BUN 8 Creatinine 0.70 Glucose 118 H Calcium 7.9 L Liver Function 08/02/16 Range/Units 05:08 Total Bilirubin 0.6 (0.2-1.2) mg/dL AST 928 H (5-34) Units/L ALT 895 H (0-55) Units/L Alkaline Phosphatase 86 (38-126) Units/L Albumin 2.6 L (3.5-5.0) g/dL - ABG Interpretation ABG results: ABG ABG pH 7.45 pH Units (7.32-7.45) 08/01/16 06:50 ABG pCO2 42 mmHg (35-45) 08/01/16 06:50 ABG pO2 242 mmHg (85-104) H 08/01/16 06:50 ABG O2 Saturation 100 % (95-98) H 08/01/16 06:50 PT/INR, D-dimer PT 15.8 Seconds (9.4-12.1) H 08/01/16 07:44 - Impressions Impressions Head CT 08/01/16 12:00 IMPRESSION: 1. No acute intracranial abnormality. D/ / Riley Cao MD / Riley Cao MD Interpreting Provider: Riley Cao MD - VTE Documentation of Mechanical Device: Venous foot pump, device Consult Discharge Plan - Plan Additional Instructions: Discharge Instructions: Total Knee Replacement Please call [facility] ([phone]), your Primary Care Physician, or report to the Emergency Room if you have any of the following symptoms: Nausea, vomiting, fever greater that 101.5, swelling, chest pain, shortness of breath, increased pain/redness/drainage/odor for your incision site, numbness/ tingling, or any other concerning symptoms. ACTIVITY:Weight-bearing as tolerated. You may progress off support (cruthches or walker) as tolerated. MEDICATIONS: Upon discharge resume your home medications. Take all the medications as prescribed. Take a stool softener if taking narcotic pain medications. Stool softeners are only effective if you drink enough fluids. Drink 6-8 glass of water or fluids a day, unless this is not allowed for another health problem. Despite using stool softeners, if you haven't had a bowel movement in 3 days, please switch to a gentle laxative. Gentle laxatives are sold over the counter. You should have a bowel movement within 24 hours, if not call the office. You will be discharged from the hospital with a prescription for pain medication. You are encouraged to decrease the use of narcotic pain medication as tolerated. Should you require a refill, please call the office. [facility] prescribes narcotic pain medication for only 4-6 weeks after surgery. If you require pain medication beyond this time periord, you may be referred to your Primary Care Physician or to the Pain Clinic for further evaluation. Plan ahead for refills on pain medication as many narcotics either need to be picked up at the office or mailed. It is best to call 48-72 hours in advance of needing a prescription refill so you don't run out of medication. To help control the post-operative pain, you may take NSAIDs (Aleve,Advil, Motrin, ibuprofen, naprosyn) or Tylenol as prescribed on the bottle in addition to the pain medication. ANTICOAGULATION (blood thinners): Continue your Aspirin, Lovenox or Coumadin as prescribed to help prevent a blood clot in the leg or in the lungs. As long as your incision remains dry and you tolerate the NSAIDs (Aleve, Advil, Motrin, ibuprofen, naprosyn), it is OK to use the NSAIDS while you are taking your anticoagulation medication. Should your incision start to drain, stop the NSAID and contact our office. Common symptoms of blood clot in the legs include: localized pain, swelling, calf tenderness, redness or discoloration of the skin. Blood clot in the lung symptoms include: shortness of breath, rapid pulse, sweating, and chest pain that worsens with deep breathing, coughing up blood, lightheadedness, feelings of anxiety. If you experience any of these symptoms notify your physician immediately, go to the emergency room, or if having trouble breathing, call 911. WOUND CARE: Leave the dressing on for 7 days. You may change the dressing if it becomes saturated greater than 50%. You can shower but not a tub bath or submerge your incision in water. Wash your hands with antibacterial soap, rinse and dry prior to any wound care. If you have diamond the visiting nurse or rehab facility can remove the stapes 10-14 days after surgery and place steri- strips across the wound. Leave the steri-strips in place until they fall off on their won. You may let water from the shower run on top of the steri-stirips. If you do not have a visiting nurse or rehab facility, you will need to return to the office at 10-14 days for the diamond to be removed. FOLLOW-UP: Please follow up with your surgeon in the orthopedic clinic in 4 weeks from the day of surgery. If you have diamond that need to be removed, you will need to come back to the office in 10-14 days from the day of surgery. Referrals: Cristóbal Franklin MD [Partnered Physician] - 08/28/16 9:35 am Merissa Mcdaniel PAC [Physician Marriage Therapist] - 08/09/16 9:45 am YOLIE,PCP [Primary Care Provider] -
[2016-08-02] MEDS: Vancomycin 1,500 MG in D5% in Water 250 ML IVPB SCH ×2 (12:12→20:47)
[2016-08-03] MEDS: *HR* OxyCODONE Immed Rel 5 MG TABLET PO PRN (02:39)
[2016-08-03 04:41] LABS: Basophils % 0.4 %; Eosinophils # 0.2 K/mcL (0.0-0.6); Eosinophils % 2.4 %; Hematocrit 29.1 % (35.3-44.9); Immature Granulocytes % 0.4 % (0-4); Lymphocytes # 0.8 K/mcL (0.6-4.6); Lymphocytes % 11.1 %; Mean Corpuscular HGB Conc 34.4 g/dL (31.6-35.5); Mean Corpuscular Hemoglobin 28.9 pg (28.0-33.3); Mean Corpuscular Volume 84.1 fL (83.0-100.0); Mean Platelet Volume 9.8 fL (9.4-12.4); Monocytes # 0.7 K/mcL (0.0-1.3); Monocytes % 9.4 %; Neutrophils # 5.4 K/mcL (1.6-8.9); Platelet Count 214 K/mcL (140-400); Red Blood Count 3.46 M/mcL (3.82-4.97); Red Cell Distribution Width 13.9 % (11.5-14.5); Segmented Neutrophils % 76.3 %
[2016-08-03 04:59] LABS: Alanine Aminotransferase 930 Units/L (0-55); Albumin 2.8 g/dL (3.5-5.0); Albumin/Globulin Ratio 0.8 (1.1-2.2); Alkaline Phosphatase 95 Units/L (38-126); Aspartate Amino Transferase 595 Units/L (5-34); BUN/Creatinine Ratio 11 (6-26); Bilirubin,Direct 0.3 mg/dL (0.0-0.5); Bilirubin,Indirect 0.5 mg/dL (0.0-1.2); Bilirubin,Total 0.8 mg/dL (0.2-1.2); Blood Urea Nitrogen 8 mg/dL (7-20); Calcium 8.7 mg/dL (8.6-10.8); Carbon Dioxide 28 mEq/L (19-29); Chloride 100 mEq/L (98-109); Cholesterol 155 mg/dL (< 200); Creatine Kinase 209 Units/L (29-168); Globulin 3.5 g/dL (2.4-3.5); Glucose 116 mg/dL (70-99); HDL Cholesterol 39 mg/dL (40-59); LDL Cholesterol,Calculated 94 mg/dL (0-99); Magnesium 1.8 mg/dL (1.6-2.6); Osmolality,Calculated 287 (280-300); Phosphorous 3.8 mg/dL (2.3-4.7); Potassium 3.8 mEq/L (3.5-4.5); Sodium 139 mEq/L (136-145); Total Protein 6.3 g/dL (6.0-8.3); Triglycerides 109 mg/dL (< 150); eGFR For African Americans > 60 (> 60); eGFR For Non-African Americans > 60 (> 60)
--- NOTE | 2016-08-03 07:34 | Internal Med Progress Note ---
Date of Encounter: 08/03/16 Time of Encounter: 07:30 - Assessment and plan (1) Acute metabolic encephalopathy Current Visit: Yes Status: Resolved Assessment and plan: resolved. secondary to gabapentin and narcotics in the setting of fever and acute blood loss anemia. Pt underwent left TKA on 07/30/[address] Franklin, found to be very somnolent the morning of 08/01 with elevated temperature of 103.2. Patient had received roxycodone for increasing pain of the left knee and was started on gabapentin . She did respond to 3 doses of narcan, and is now able to wake up and give one word answers to occasional questions with significant verbal stimulation. She denies any pain currently. She had an ABG which showed normal pH and CO2, elevated O2 (on nonrebreather at time of ABG) and normal HCO3. CT head was unremarkable. (2) Fever Current Visit: Yes Status: Acute Assessment and plan: Temp of 103.9 at 7am on 08/01. Could be secondary to gabapentin, and acute hepatitis. no source for infection etiology. - CXR negative for infection. no cough, no respiratory symptoms. not requiring oxygen. - No nuchal rigidity, patient denying headache or neck pain which makes SUPER[employer]OR [employer] infection unlikely. - ALT and AST are trending up. normal bilirrubin and Alk phos. no abdominal pain , nausea, vomiting or diarrhea. She is eating well. Off gabapentin. Patient was started on IV Vancomycin and Zosyn 08/01. Zosyn stopped 08/02 yesterday and patient refused IV Vancomycin last night. Last dose of Vancomycin was 10 am yesterday. Temp this morning is 98.4.(max temp overnight at 99.6). Preliminary results of blood cultures are negative. Patient is eager to go home. Patient explained in detail her clinical condition, including abnormal LFT and the importance of a close follow up. She verbalized understanding and agreed with the plan. check LFT next week. f/u with PCP next week. Qualifiers: Fever type: unspecified Qualified Code(s): R50.9 - Fever, unspecified (3) Transaminitis Current Visit: Yes Status: Acute Assessment and plan: suspected acute hepatitis. could be secondary to ischemia from acute blood loss anemia. r/o viral hepatitis. Patient had normal Liver function panel in December 2015. AST 928. ALT 895. low albumin (2.6). high INR (1.5) normal bilirrubin and alk phos. Liver ultrasound is unremarkable, normal doppler. Pending results of hepatitis profile. Close monitoring LFTs/INR as outpatient. (4) Postoperative anemia due to acute blood loss Current Visit: No Status: Acute Assessment and plan: chronic anemia, hgb in May 2016 was 11. Hgb on admission was 10.2 and dropped to 7 on 08/02. REceived 2 units PRBC 08/02. hgb this morning is 10. Pt is hemodynamically stable. close monitoring. (5) Acute hyponatremia Current Visit: Yes Status: Acute Assessment and plan: resolved. hypovolemic hyponatremia. (6) RAY (acute kidney injury) Current Visit: Yes Status: Acute Assessment and plan: resolved. Pre-renal from infection/fever and poor oral intake. received IV fluids. (7) Hypoalbuminemia Current Visit: Yes Status: Acute Assessment and plan: albumin 2.6. (8) Elevated INR Current Visit: Yes Status: Acute Assessment and plan: INR 1.5. repeat as outpatient. (9) JAC (obstructive sleep apnea) Current Visit: Yes Status: Chronic (10) Obesity (BMI 35.0-39.9 without comorbidity) Current Visit: No Status: Chronic Assessment and plan: bmi 36.4.. outpatient weight loss program - Subjective Interval history: Patient feels good and she is ready to go home. She is eating well. No abdominal pain, nausea nor vomiting. afebrile. - Constitutional Vitals: Temp Pulse Resp BP Pulse Ox 98.5 F 82 17 144/81 94 L 08/03/16 04:00 08/03/16 04:00 08/03/16 04:00 08/03/16 04:00 08/03/16 04:00 General appearance: Present: cooperative, A&O X 3, pleasant, no acute distress, answers questions appropriately - Eye Eye exam: Present: PERRL, sclera anicteric - ENT ENT exam: Present: mucous membranes moist - Neck Neck exam general surgery: Present: supple, trachea midline. Absent: lymphadenopathy - Respiratory Respiratory exam: Present: CTAB - Cardiovascular Cardiovascular exam: Present: RRR - GI/Abdominal GI/Abdominal exam: Present: normal bowel sounds, soft. Absent: distended, tenderness - Extremities Exam Additional comments: left leg is swollen and mild tenderness. Surgical incision is covered by dressing. - Back Exam Back exam: Absent: CVA tenderness (L), CVA tenderness (R) - Neurological Exam Neurological exam: Present: alert, oriented X3. Absent: facial droop, speech deficit - Skin Skin exam: Absent: rash Internal Medicine: Result - Labs CBC & Chem 7: 08/03/16 04:26 08/03/16 04:26 Labs: Short CBC 08/03/16 Range/Units 04:26 WBC 7.0 (4.3-11.1) K/mcL Hgb 10.0 L D (11.5-15.4) g/dL Hct 29.1 L (35.3-44.9) % Plt Count 214 (140-400) K/mcL Neutrophils # 5.4 (1.6-8.9) K/mcL BMP 08/03/16 04:26 Sodium 139 Potassium 3.8 Chloride 100 Carbon Dioxide 28 BUN 8 Creatinine 0.72 Glucose 116 H Calcium 8.7 Liver Function 08/03/16 Range/Units 04:26 Total Bilirubin 0.8 (0.2-1.2) mg/dL Direct Bilirubin 0.3 (0.0-0.5) mg/dL AST 595 H (5-34) Units/L ALT 930 H (0-55) Units/L Alkaline Phosphatase 95 (38-126) Units/L Albumin 2.8 L (3.5-5.0) g/dL - ABG Interpretation ABG results: ABG ABG pH 7.45 pH Units (7.32-7.45) 08/01/16 06:50 ABG pCO2 42 mmHg (35-45) 08/01/16 06:50 ABG pO2 242 mmHg (85-104) H 08/01/16 06:50 ABG O2 Saturation 100 % (95-98) H 08/01/16 06:50 PT/INR, D-dimer PT 15.8 Seconds (9.4-12.1) H 08/01/16 07:44 - Impressions Impressions Liver Ultrasound 08/02/16 18:00 IMPRESSION: Unremarkable right upper quadrant ultrasound post cholecystectomy. Normal hepatopetal flow within the portal vein and patency of the hepatic artery and hepatic veins is demonstrated. D/ /02/2016 19:59:56 Brian Breen MD / magda Interpreting Provider: Brian Breen MD - VTE Documentation of Mechanical Device: Venous foot pump, device Consult Discharge Plan - Plan Additional Instructions: Discharge Instructions: Total Knee Replacement Please call [facility] ([phone]), your Primary Care Physician, or report to the Emergency Room if you have any of the following symptoms: Nausea, vomiting, fever greater that 101.5, swelling, chest pain, shortness of breath, increased pain/redness/drainage/odor for your incision site, numbness/ tingling, or any other concerning symptoms. ACTIVITY:Weight-bearing as tolerated. You may progress off support (cruthches or walker) as tolerated. MEDICATIONS: Upon discharge resume your home medications. Take all the medications as prescribed. Take a stool softener if taking narcotic pain medications. Stool softeners are only effective if you drink enough fluids. Drink 6-8 glass of water or fluids a day, unless this is not allowed for another health problem. Despite using stool softeners, if you haven't had a bowel movement in 3 days, please switch to a gentle laxative. Gentle laxatives are sold over the counter. You should have a bowel movement within 24 hours, if not call the office. You will be discharged from the hospital with a prescription for pain medication. You are encouraged to decrease the use of narcotic pain medication as tolerated. Should you require a refill, please call the office. [facility] prescribes narcotic pain medication for only 4-6 weeks after surgery. If you require pain medication beyond this time periord, you may be referred to your Primary Care Physician or to the Pain Clinic for further evaluation. Plan ahead for refills on pain medication as many narcotics either need to be picked up at the office or mailed. It is best to call 48-72 hours in advance of needing a prescription refill so you don't run out of medication. To help control the post-operative pain, you may take NSAIDs (Aleve,Advil, Motrin, ibuprofen, naprosyn) or Tylenol as prescribed on the bottle in addition to the pain medication. ANTICOAGULATION (blood thinners): Continue your Aspirin, Lovenox or Coumadin as prescribed to help prevent a blood clot in the leg or in the lungs. As long as your incision remains dry and you tolerate the NSAIDs (Aleve, Advil, Motrin, ibuprofen, naprosyn), it is OK to use the NSAIDS while you are taking your anticoagulation medication. Should your incision start to drain, stop the NSAID and contact our office. Common symptoms of blood clot in the legs include: localized pain, swelling, calf tenderness, redness or discoloration of the skin. Blood clot in the lung symptoms include: shortness of breath, rapid pulse, sweating, and chest pain that worsens with deep breathing, coughing up blood, lightheadedness, feelings of anxiety. If you experience any of these symptoms notify your physician immediately, go to the emergency room, or if having trouble breathing, call 911. WOUND CARE: Leave the dressing on for 7 days. You may change the dressing if it becomes saturated greater than 50%. You can shower but not a tub bath or submerge your incision in water. Wash your hands with antibacterial soap, rinse and dry prior to any wound care. If you have diamond the visiting nurse or rehab facility can remove the stapes 10-14 days [address] surgery [address] steri- strips across the wound. Leave the steri-strips in place until they fall off on their won. You may let water from the shower run on top of the steri-stirips. If you do not have a visiting nurse or rehab facility, you will need to return to the office at 10-14 days for the diamond to be removed. FOLLOW-UP: Please follow up with your surgeon in the orthopedic clinic in 4 weeks from the day of surgery. If you have diamond that need to be removed, you will need to come back to the office in 10-14 days from the day of surgery. Referrals: Cristóbal Franklin MD [Partnered Physician] - 08/28/16 9:35 am Merissa Mcdaniel PAC [Physician Felt Tipping Machine Tender] - 08/09/16 9:45 am YOLIE,PCP [Primary Care Provider] -
[2016-08-03 07:37] VITALS: BP 131/79
--- NOTE | 2016-08-03 07:54 | Orthopedics Progress Note ---
Date of Encounter: 08/03/16 Time of Encounter: 07:54 - Assessment and Plan (1) HTN (hypertension) Current Visit: No Status: Chronic Qualifiers: Qualified Code(s): I15.9 - Secondary hypertension, unspecified; I15 - Secondary hypertension (2) GERD (gastroesophageal reflux disease) Current Visit: No Status: Chronic Qualifiers: Qualified Code(s): K21.9 - Gastro-esophageal reflux disease without esophagitis (3) Hyperlipidemia Current Visit: No Status: Chronic Qualifiers: Qualified Code(s): E78.5 - Hyperlipidemia, unspecified (4) Obesity (BMI 35.0-39.9 without comorbidity) Current Visit: No Status: Chronic (5) Arrhythmia Current Visit: No Status: Acute Qualifiers: Qualified Code(s): I49.9 - Cardiac arrhythmia, unspecified (6) Obstructive sleep apnea Current Visit: No Status: Chronic (7) Berylliosis Current Visit: No Status: Chronic (8) Arthritis of knee, left Current Visit: Yes Status: Acute (9) Acute blood loss anemia Current Visit: No Status: Acute Subjective Interval history: Patient was seen this morning doing well without complaints. Afebrile vital signs stable. Operative extremity: Neurovascularly intact Dressing clean dry and intact Calves nontender Assessment and plan: Continue with postoperative care Hematocrit 29 discharged today Objective Vital signs: Vital Signs Temp Pulse Resp BP Pulse Ox 08/03/16 07:35 98.4 F 81 16 131/79 94 L 08/03/16 04:00 98.5 F 82 17 144/81 94 L 08/03/16 00:00 99.6 F 94 18 146/84 97 08/02/16 20:00 99.0 F 96 16 157/81 97 08/02/16 17:45 99 F 100 16 150/84 95 08/02/16 15:37 98.7 F 84 148/86 08/02/16 15:22 98.5 F 86 14 139/76 96 08/02/16 11:57 98.3 F 91 17 136/79 95 08/02/16 10:36 99.4 F 92 16 129/78 96 08/02/16 09:23 98.8 F 81 14 138/86 98 08/02/16 09:10 96 08/02/16 09:08 98.6 F 93 14 138/80 96 Intake and Output 08/02/16 08/02/16 08/03/16 15:59 23:59 07:59 Intake Total 540 / 540 850 / 850 350 / 350 Output Total 0 / 0 350 / 350 Balance 540 / 540 500 / 500 350 / 350 Intake: IV Fluids 250 / 250 Vancocin 1,500 MG In 250 / 250 Dextrose 5% 250 ML @ 167 mls/hr IVPB Q12H AYAD Rx#: [id number] Oral 240 / 240 300 / 300 350 / 350 Blood Product 300 / 300 300 / 300 Rbcs Leuko Poor As-1 300 / 300 Unit [id number] Rbcs Leuko Poor As-1 0 / 0 300 / 300 Unit [id number] Output: Urine 0 / 0 350 / 350 Other: Meal Breakfast Percent of Meal Consumed 15% # Voids 1 - Labs CBC & BMP: 08/03/16 04:26 08/03/16 04:26 Labs: Abnormal lab results RBC 3.46 M/mcL (3.82-4.97) L 08/03/16 04:26 Hgb 10.0 g/dL (11.5-15.4) L D 08/03/16 04:26 Hct 29.1 % (35.3-44.9) L 08/03/16 04:26 PT 15.8 Seconds (9.4-12.1) H 08/01/16 07:44 ABG pO2 242 mmHg (85-104) H 08/01/16 06:50 ABG HCO3 29.2 mEQ/L (21-27) H 08/01/16 06:50 ABG Total CO2 30.5 mEq/L (20-26) H 08/01/16 06:50 ABG O2 Saturation 100 % (95-98) H 08/01/16 06:50 ABG Base Excess 4.8 mEq/L (-2.0 to 3.0) H 08/01/16 06:50 Glucose 116 mg/dL (70-99) H 08/03/16 04:26 AST 595 Units/L (5-34) H 08/03/16 04:26 ALT 930 Units/L (0-55) H 08/03/16 04:26 Creatine Kinase 209 Units/L (29-168) H 08/03/16 04:26 Albumin 2.8 g/dL (3.5-5.0) L 08/03/16 04:26 Albumin/Globulin Ratio 0.8 (1.1-2.2) L 08/03/16 04:26 HDL Cholesterol 39 mg/dL (40-59) L 08/03/16 04:26 Urine Clarity Cloudy (Clear) A 08/01/16 08:08 Ur Squamous Epith Cells Many per lpf (None-Few) H 08/01/16 08:08 Hyaline Casts Moderate per lpf (None-Few) H 08/01/16 08:08 - VTE Documentation of Mechanical Device: Venous foot pump, device Consult Discharge Plan - Plan Additional Instructions: Discharge Instructions: Total Knee Replacement Please call [facility] ([phone]), your Primary Care Physician, or report to the Emergency Room if you have any of the following symptoms: Nausea, vomiting, fever greater that 101.5, swelling, chest pain, shortness of breath, increased pain/redness/drainage/odor for your incision site, numbness/ tingling, or any other concerning symptoms. ACTIVITY:Weight-bearing as tolerated. You may progress off support (cruthches or walker) as tolerated. MEDICATIONS: Upon discharge resume your home medications. Take all the medications as prescribed. Take a stool softener if taking narcotic pain medications. Stool softeners are only effective if you drink enough fluids. Drink 6-8 glass of water or fluids a day, unless this is not allowed for another health problem. Despite using stool softeners, if you haven't had a bowel movement in 3 days, please switch to a gentle laxative. Gentle laxatives are sold over the counter. You should have a bowel movement within 24 hours, if not call the office. You will be discharged from the hospital with a prescription for pain medication. You are encouraged to decrease the use of narcotic pain medication as tolerated. Should you require a refill, please call the office. [facility] prescribes narcotic pain medication for only 4-6 weeks after surgery. If you require pain medication beyond this time periord, you may be referred to your Primary Care Physician or to the Pain Clinic for further evaluation. Plan ahead for refills on pain medication as many narcotics either need to be picked up at the office or mailed. It is best to call 48-72 hours in advance of needing a prescription refill so you don't run out of medication. To help control the post-operative pain, you may take NSAIDs (Aleve,Advil, Motrin, ibuprofen, naprosyn) or Tylenol as prescribed on the bottle in addition to the pain medication. ANTICOAGULATION (blood thinners): Continue your Aspirin, Lovenox or Coumadin as prescribed to help prevent a blood clot in the leg or in the lungs. As long as your incision remains dry and you tolerate the NSAIDs (Aleve, Advil, Motrin, ibuprofen, naprosyn), it is OK to use the NSAIDS while you are taking your anticoagulation medication. Should your incision start to drain, stop the NSAID and contact our office. Common symptoms of blood clot in the legs include: localized pain, swelling, calf tenderness, redness or discoloration of the skin. Blood clot in the lung symptoms include: shortness of breath, rapid pulse, sweating, and chest pain that worsens with deep breathing, coughing up blood, lightheadedness, feelings of anxiety. If you experience any of these symptoms notify your physician immediately, go to the emergency room, or if having trouble breathing, call 911. WOUND CARE: Leave the dressing on for 7 days. You may change the dressing if it becomes saturated greater than 50%. You can shower but not a tub bath or submerge your incision in water. Wash your hands with antibacterial soap, rinse and dry prior to any wound care. If you have diamond the visiting nurse or rehab facility can remove the stapes 10-14 [address] surgery [address] steri- strips across the wound. Leave the steri-strips in place until they fall off on their won. You may let water from the shower run on top of the steri-stirips. If you do not have a visiting nurse or rehab facility, you will need to return to the office at 10-14 days for the diamond to be removed. FOLLOW-UP: Please follow up with your surgeon in the orthopedic clinic in 4 weeks from the day of surgery. If you have diamond that need to be removed, you will need to come back to the office in 10-14 days from the day of surgery. Referrals: Cristóbal Franklin MD [Partnered Physician] - 08/28/16 9:35 am Mulvany,Merissa L, PAC [Physician Manager Inventory Control] - 08/09/16 9:45 am NO,PCP [Primary Care Provider] -
[2016-08-03] MEDS ORDERED: Aminoglycoside Consult 1 EACH MC ONE (10:59)
== END 2016-08-03 11:00 | disposition home or self-care (01) | DRG 469 ==
LOC: SAMDAY 11:09 → 3NENU 17:56
PROVIDERS: ADMIT Orthopaedic Surgery; ATTEND Orthopaedic Surgery